=== PATIENT | female | born 1975 | race Caucasian/White ===

== ENCOUNTER 2017-02-16 12:22 | Emergency (ER) | payer MEDICAID ==
[~2017-02-16] VITALS: Ht 152.4 cm; Wt 64.0 kg
[2017-02-16 13:12] LABS: BASOPHIL % 0.5 % (0-2); PLATELET COUNT 178 x10^3mcL (130-400)
[2017-02-16 13:13] LABS: RED CELL DISTRIBUTION WIDTH 21.8 % (11.5-14.5)
[2017-02-16 13:14] LABS: rbc morphology (normal/abnorm) ABNORMAL (NORMAL)
[2017-02-16 13:23] LABS: CARBON DIOXIDE 30.3 mmol/L (21-32); CHLORIDE SERUM 105 mmol/L (98-107); CREATININE SERUM 0.5 mg/dL (0.6-1.0); GFR1 > 60 mL/min; GLUCOSE SERUM 78 mg/dL (74-106); POTASSIUM SERUM 3.7 mmol/L (3.5-5.1); SODIUM SERUM 141 mmol/L (136-145)
[2017-02-16 13:27] LABS: ALBUMIN 4.3 g/dL (3.4-5.0); ALKALINE PHOSPHATASE 58 U/L (46-116); ALT/SGPT 39 U/L (14-59); AST/SGOT 17 U/L (15-37); BILIRUBIN TOTAL 1.36 mg/dL (0.20-1.00); CHOLESTEROL 85 mg/dL (<200); CHOLESTEROL/HDL RATIO 2.8; HDL CHOLESTEROL 30 mg/dL (40-60); LIPASE 128 IU/L (73-393); TOTAL PROTEIN, SERUM 8.2 g/dL (6.4-8.2); TRIGLYCERIDES 145 mg/dL (<150)
[2017-02-16 13:37] LABS: UA SPECIFIC GRAVITY 1.015 (1.005-1.035); microscopic required? YES; urine erythrocyte 1+ (NEGATIVE)
[2017-02-16 13:38] LABS: T3 TOTAL 1.28 ng/mL
[2017-02-16 13:55] VITALS: BP 119/78
[2017-02-16 14:51] LABS: FREE THYROXINE INDEX 3.1 ug/dL (1.4-4.5); T4(THYROXINE) 9.8 ug/dL (4.7-13.3)
== END 2017-02-16 13:55 | disposition home or self-care (01) ==
LOC: ED 12:22
PROVIDERS: Specialist
DX: I10 Essential (primary) hypertension (principal)
CPT/HCPCS: 36415; 83880; 84439

== ENCOUNTER 2017-09-30 23:48 | Emergency (ER) | payer MEDICAID ==
[~2017-09-30] VITALS: Ht 152.4 cm; Wt 65.8 kg
[2017-09-30 23:50] VITALS: Ht 152.4 cm; Wt 65.8 kg
[2017-10-01 01:41] LABS: BASOPHIL % 0.5 % (0-2); PLATELET COUNT 154 x10^3mcL (130-400)
[2017-10-01 01:43] LABS: RED CELL DISTRIBUTION WIDTH 21.4 % (11.5-14.5)
[2017-10-01 01:51] LABS: CALCIUM 8.5 mg/dL (8.5-10.1); CARBON DIOXIDE 23.7 mmol/L (21-32); CHLORIDE SERUM 105 mmol/L (98-107); CREATININE SERUM 0.7 mg/dL (0.6-1.0); GFR1 > 60 mL/min; GLUCOSE SERUM 123 mg/dL (74-106); POTASSIUM SERUM 3.5 mmol/L (3.5-5.1); SODIUM SERUM 139 mmol/L (136-145)
[2017-10-01 01:56] LABS: ALBUMIN 3.9 g/dL (3.4-5.0); ALKALINE PHOSPHATASE 64 U/L (46-116); ALT/SGPT 31 U/L (14-59); AST/SGOT 16 U/L (15-37); BILIRUBIN TOTAL 1.23 mg/dL (0.20-1.00); LIPASE 168 IU/L (73-393); TOTAL PROTEIN, SERUM 7.2 g/dL (6.4-8.2)
[2017-10-01 04:18] VITALS: BP 129/84
== END 2017-10-01 06:01 | disposition home or self-care (01) ==
LOC: ED 23:48
PROVIDERS: Emergency Medicine
DX: R19.00 Intra-abdominal and pelvic swelling, mass and lump, unspecified site (principal); I10 Essential (primary) hypertension; Z90.710 Acquired absence of both cervix and uterus
CPT/HCPCS: 36415

== ENCOUNTER 2019-07-15 10:37 | Emergency (ER) | payer SELFPAY ==
[~2019-07-15] VITALS: Ht 152.4 cm; Wt 62.6 kg
[2019-07-15 10:52] VITALS: Ht 152.4 cm; Wt 62.6 kg
[2019-07-15 11:35] LABS: BASOPHIL % 0.4 % (0-2); PLATELET COUNT 180 x10^3mcL (130-400)
[2019-07-15 11:41] LABS: CALCIUM 8.3 mg/dL (8.5-10.1); CARBON DIOXIDE 25.2 mmol/L (21-32); CHLORIDE SERUM 107 mmol/L (98-107); CREATININE SERUM 0.6 mg/dL (0.6-1.0); GFR1 > 60 mL/min; GLUCOSE SERUM 109 mg/dL (74-106); POTASSIUM SERUM 3.8 mmol/L (3.5-5.1); SODIUM SERUM 142 mmol/L (136-145)
[2019-07-15 11:42] LABS: RED CELL DISTRIBUTION WIDTH 22.4 % (11.5-14.5)
[2019-07-15 11:43] LABS: rbc morphology (normal/abnorm) ABNORMAL (NORMAL)
[2019-07-15 11:53] LABS: ALBUMIN 4.2 g/dL (3.4-5.0); ALKALINE PHOSPHATASE 60 U/L (46-116); ALT/SGPT 27 U/L (14-59); AST/SGOT 8 U/L (15-37); T4(THYROXINE) 7.8 ug/dL (4.7-13.3); TOTAL PROTEIN, SERUM 7.4 g/dL (6.4-8.2)
[2019-07-15 12:22] LABS: AMPHETAMINE QUAL UR NONE DETECTED (See below)
[2019-07-15 14:45] VITALS: BP 135/65
== END 2019-07-15 14:45 | disposition home or self-care (01) ==
LOC: ED 10:37
PROVIDERS: Emergency Medicine
DX: E86.0 Dehydration (principal); R00.2 Palpitations; D64.9 Anemia, unspecified; I10 Essential (primary) hypertension; Z90.710 Acquired absence of both cervix and uterus
CPT/HCPCS: J7030; Q0092